=== PATIENT | female | born 1975 | race African-American/Black ===

== ENCOUNTER 2019-09-25 20:47 | Emergency (ER) | payer BC ==
[2019-09-25 21:33] LABS: Absolute Lymphocytes (CBC) 2.9 K/uL (0.7-4.9); Basophils % 0.7 % (0-1.3); Hematocrit 45.1 % (36.0-45.0); Lymphocytes % 38.1 % (15.3-44.8); MPV 8.5 fL (7.6-11.3)
[2019-09-25 21:44] LABS: Protime INR 1.15
[2019-09-25 22:22] LABS: ALT/SGPT 18 U/L (12-78); AST/SGOT 12 U/L (15-37); Albumin 3.3 g/dL (3.4-5.0); Alkaline Phosphatase 81 U/L (45-117); BUN Blood Urea Nitrogen 10 mg/dL (7-18); Bicarbonate 28 mmol/L (21-32); Bilirubin Direct < 0.1 mg/dL (0-0.2); Bilirubin Total 0.2 mg/dL (0.2-1.0); Glucose Level 82 mg/dL (74-106); Magnesium 1.9 mg/dL (1.8-2.4); NT PRO-BNP 34 pg/mL (<125); Potassium 3.3 mmol/L (3.5-5.1); Protein, Total 7.6 g/dL (6.4-8.2); Sodium Level 137 mmol/L (136-145); Troponin (Emerg Dept Use Only) < 0.02 ng/mL (0.0-0.045)
--- NOTE | 2019-09-26 01:17 | ER ---
Nurse's Notes [facility] Name: Patt Luis Age: 44 yrs Sex: Female : 1975 Arrival Date: 09/25/2019 Time: 20:47 Bed 16 Private MD: Diagnosis: Chest pain, unspecified Presentation: 09/25 20:50 Presenting complaint: Patient states: L sided Chest pain started at 5pm today, radiates ca1 to the back and neck that is describes pressure and is constant. Reports SOB. Denies N/V, dizziness, lightheadedness, cough. Denies hx of cardiac problems. Transition of care: patient was not received from another setting of care. Onset of symptoms was September 25, 2019 at 17:00. Risk Assessment: Do you want to hurt yourself or someone else? Patient reports no desire to harm self or others. Initial Sepsis Screen: Does the patient meet any 2 criteria? No. Patient's initial sepsis screen is negative. Does the patient have a suspected source of infection? No. Patient's initial sepsis screen is negative. Care prior to arrival: None. 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 LMP N/A - Hysterectomy ca1 Historical: - Allergies: 21:08 No Known Allergies; ca1 - Home Meds: 22:11 hydrocodone bitartrate oral oral as needed [Active]; estrogen patch [Active]; [place] jd3 Thyroid 30 mg Oral tab [Active]; clonazepam 0.5 mg Oral tab [Active]; lisinopril-hydrochlorothiazide 20-25 mg oral tab [Active]; sucralfate 1 gram Oral tab [Active]; potassium chloride 8 mEq Oral cpER [Active]; zolpidem 10 mg Oral tab [Active]; ferrous sulfate Oral [Active]; - PMHx: 21:08 Hypertension; Thyroid problem; Arthritis; Insomnia; Migraines; ca1 - PSHx: 21:08 ; Breast Reduction; Hysterectomy; Cholecystectomy; ca1 22:11 right rotator cuff; jd3 - Immunization history:: Adult Immunizations up to date, Flu vaccine is not up to date. - Social history:: Smoking status: Patient/guardian denies using tobacco. - Ebola Screening: : Patient negative for fever greater than or equal to 101.5 degrees Fahrenheit, and additional compatible Ebola Virus Disease symptoms Patient denies exposure to infectious person Patient denies travel to an Ebola-affected area in the 21 days before illness onset No symptoms or risks identified at this time. Screenin:56 Abuse screen: Denies threats or abuse. Nutritional screening: No deficits noted. jd3 Tuberculosis screening: No symptoms or risk factors identified. Fall Risk IV access (20 points). Ambulatory Aid- None/Bed Rest/Nurse Assist (0 pts). Gait- Normal/Bed Rest/Wheelchair (0 pts) Mental Status- Oriented to own ability (0 pts). Total Yadav Fall Scale indicates No Risk (0-24 pts). Assessment: 21:10 General: Appears in no apparent distress. uncomfortable, Behavior is calm, cooperative, jd3 appropriate for age. Pain: Complains of pain in chest Pain radiates to back Quality of pain is described as pressure, Pain began suddenly, pt reporting she does not want any pain medication at this time. Is intermittent. Neuro: Level of Consciousness is awake, alert, obeys commands, Oriented to person, place, time, situation. Cardiovascular: Reports chest pain, Capillary refill < 3 seconds Patient's skin is warm and dry. Rhythm is regular. Respiratory: Reports shortness of breath when chest hurts Airway is patent Respiratory effort is even, unlabored, Respiratory pattern is regular, symmetrical, Denies cough. GI: No signs and/or symptoms were reported involving the gastrointestinal system. Patient currently denies constipation, diarrhea, nausea, vomiting. : No signs and/or symptoms were reported regarding the genitourinary system. EENT: No signs and/or symptoms were reported regarding the EENT system. Derm: Skin is intact, Skin is dry, Skin is normal, Skin temperature is warm. Musculoskeletal: Circulation, motion, and sensation intact. Range of motion: intact in all extremities. 21:56 Reassessment: Patient appears in no apparent distress at this time. No changes from jd3 previously documented assessment. Patient and/or family updated on plan of care and expected duration. Pain level reassessed. Patient is alert, oriented x 3, equal unlabored respirations, skin warm/dry/pink. awaiting results. 23:13 Reassessment: Patient appears in no apparent distress at this time. Patient and/or jd3 family updated on plan of care and expected duration. Pain level reassessed. Patient is alert, oriented x 3, equal unlabored respirations, skin warm/dry/pink. awaiting repeat troponin and EKG at 2345. Patient states feeling better. 09/26 00:18 Reassessment: Patient appears in no apparent distress at this time. Patient and/or jd3 family updated on plan of care and expected duration. Pain level reassessed. Patient is alert, oriented x 3, equal unlabored respirations, skin warm/dry/pink. awaiting results Patient states feeling better. 01:43 Reassessment: Patient appears in no apparent distress at this time. Patient and/or jd3 family updated on plan of care and expected duration. Pain level reassessed. Patient is alert, oriented x 3, equal unlabored respirations, skin warm/dry/pink. reported understanding of discharge instructions, even and steady gait upon discharge. Patient states feeling better. Vital Signs: 09/25 21:08 BP 140 / 106; Pulse 96; Resp 19 S; Temp 98(O); Pulse Ox 100% on R/A; Weight 137.89 kg ca1 (R); Height 5 ft. 5 in. (165.10 cm) (R); Pain 10/10; 21:55 BP 128 / 83; Pulse 67; Resp 18 S; Pulse Ox 100% on R/A; jd3 23:14 BP 132 / 93; Pulse 84; Resp 16 S; Pulse Ox 100% on R/A; jd3 09/26 00:19 BP 146 / 90; Pulse 75; Resp 16 S; Pulse Ox 100% on R/A; jd3 01:44 Pulse 91; Resp 16 S; Pulse Ox 100% on R/A; jd3 09/25 21:08 Body Mass Index 50.59 (137.89 kg, 165.10 cm) ca1 ED Course: 09/25 20:47 Patient arrived in ED. ds1 21:00 Dez Dickerson MD is Attending Physician. tw4 21:07 Triage completed. ca1 21:08 Arm band placed on right wrist. ca1 21:10 Inserted saline lock: 20 gauge in right antecubital area, using aseptic technique. jd3 Blood collected. placed by Estela [facility]. Patient maintains SpO2 saturation greater than 95% on room air. 21:24 Horne, Armando, RN is Primary Nurse. jd3 21:50 XRAY Chest (1 view) In Process Unspecified. EDMS 21:56 Patient has correct armband on for positive identification. Placed in gown. Bed in low jd3 position. Call light in reach. Side rails up X 1. Adult w/ patient. permastone applicator on. Pulse ox on. NIBP on. 23:55 Troponin (emerg Dept Use Only): \T\ 2345 Sent. jd3 09/26 01:42 No provider procedures requiring assistance completed. IV discontinued, intact, jd3 bleeding controlled, No redness/swelling at site. Pressure dressing applied. Administered Medications: 09/25 23:10 Not Given (Patient Refused): TORadol 30 mg IVP once jd3 Outcome: 09/26 01:16 Discharge ordered by . tw4 01:43 Discharged to home ambulatory. jd3 01:43 Condition: stable 01:43 Discharge instructions given to patient, family, Instructed on discharge instructions, follow up and referral plans. medication usage, Demonstrated understanding of instructions, follow-up care, medications, Prescriptions given X 1. 01:45 Patient left the ED. jd3 Signatures: Dispatcher [employer] EDOH Alejandrina Rey ds1 Armando Horne RN RN jd3 Dez Dickerson MD MD tw4 Minna Luna RN RN ca1
--- NOTE | 2019-09-26 01:17 | EDPHYS ---
Physician Documentation [facility] Name: Patt Luis Age: 44 yrs Sex: Female : 1975 Arrival Date: 09/25/2019 Time: 20:47 Bed 16 Private MD: ED Physician Dez Dickerson HPI: 09/26 00:07 This 44 yrs old Black Female presents to ER via Wheelchair with complaints of Chest tw4 Pain. 00:07 The patient or guardian reports chest pain that is located primarily in the anterior tw4 chest wall, left. Onset: today. 00:09 The pain radiates to back. Associated signs and symptoms: The patient has no apparent tw4 associated signs or symptoms. The chest pain is described as dull. Duration: The patient or guardian reports a single episode. Modifying factors: The symptoms are alleviated by nothing. the symptoms are aggravated by nothing. Severity of pain: At its worst the pain was moderate in the emergency department the pain is unchanged. The patient has not experienced similar symptoms in the past. 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 LMP N/A - Hysterectomy ca1 Historical: - Allergies: 21:08 No Known Allergies; ca1 - Home Meds: 22:11 hydrocodone bitartrate oral oral as needed [Active]; estrogen patch [Active]; [place] jd3 Thyroid 30 mg Oral tab [Active]; clonazepam 0.5 mg Oral tab [Active]; lisinopril-hydrochlorothiazide 20-25 mg oral tab [Active]; sucralfate 1 gram Oral tab [Active]; potassium chloride 8 mEq Oral cpER [Active]; zolpidem 10 mg Oral tab [Active]; ferrous sulfate Oral [Active]; - PMHx: 21:08 Hypertension; Thyroid problem; Arthritis; Insomnia; Migraines; ca1 - PSHx: 21:08 ; Breast Reduction; Hysterectomy; Cholecystectomy; ca1 22:11 right rotator cuff; jd3 - Immunization history:: Adult Immunizations up to date, Flu vaccine is not up to date. - Social history:: Smoking status: Patient/guardian denies using tobacco. - Ebola Screening: : Patient negative for fever greater than or equal to 101.5 degrees Fahrenheit, and additional compatible Ebola Virus Disease symptoms Patient denies exposure to infectious person Patient denies travel to an Ebola-affected area in the days before illness onset No symptoms or risks identified at this time. ROS: 09/26 00:09 Constitutional: Negative for fever, chills, and weight loss, Eyes: Negative for injury, tw4 pain, redness, and discharge, Respiratory: Negative for shortness of breath, cough, wheezing, and pleuritic chest pain, Abdomen/GI: Negative for abdominal pain, nausea, vomiting, diarrhea, and constipation, Back: Negative for injury and pain, MS/Extremity: Negative for injury and deformity, Skin: Negative for injury, rash, and discoloration, Neuro: Negative for headache, weakness, numbness, tingling, and seizure. Cardiovascular: Positive for chest pain, Negative for edema, orthopnea, palpitations, paroxysmal nocturnal dyspnea. Exam: 00:09 Constitutional: This is a well developed, well nourished patient who is awake, alert, tw4 and in no acute distress. Head/Face: Normocephalic, atraumatic. Chest/axilla: Normal chest wall appearance and motion. Nontender with no deformity. No lesions are appreciated. Cardiovascular: Regular rate and rhythm with a normal S1 and S2. No gallops, murmurs, or rubs. Normal PMI, no JVD. No pulse deficits. Respiratory: Lungs have equal breath sounds bilaterally, clear to auscultation and percussion. No rales, rhonchi or wheezes noted. No increased work of breathing, no retractions or nasal flaring. Abdomen/GI: Soft, non-tender, with normal bowel sounds. No distension or tympany. No guarding or rebound. No evidence of tenderness throughout. Back: No spinal tenderness. No costovertebral tenderness. Full range of motion. MS/ Extremity: Pulses equal, no cyanosis. Neurovascular intact. Full, normal range of motion. Neuro: Awake and alert, GCS 15, oriented to person, place, time, and situation. Cranial nerves II-XII grossly intact. Motor strength 5/5 in all extremities. Sensory grossly intact. Cerebellar exam normal. Normal gait. Psych: Awake, alert, with orientation to person, place and time. Behavior, mood, and affect are within normal limits. Vital Signs: 09/25 21:08 BP 140 / 106; Pulse 96; Resp 19 S; Temp 98(O); Pulse Ox 100% on R/A; Weight 137.89 kg ca1 (R); Height 5 ft. 5 in. (165.10 cm) (R); Pain 10/10; 21:55 BP 128 / 83; Pulse 67; Resp 18 S; Pulse Ox 100% on R/A; jd3 23:14 BP 132 / 93; Pulse 84; Resp 16 S; Pulse Ox 100% on R/A; jd3 09/26 00:19 BP 146 / 90; Pulse 75; Resp 16 S; Pulse Ox 100% on R/A; jd3 01:44 Pulse 91; Resp 16 S; Pulse Ox 100% on R/A; jd3 09/25 21:08 Body Mass Index 50.59 (137.89 kg, 165.10 cm) ca1 MDM: 09/25 21:00 Patient medically screened. tw4 09/26 00:09 Differential diagnosis: acute myocardial infarction, acute pericarditis, anxiety, tw4 gastroesophageal reflux disease (GERD), pulmonary embolus, stable angina, thoracic aortic disection. HEART Score: History: Slightly Suspicious (0), ECG: Non specific repolarization disturbance / LBTB / PM (1), Age: < or = 45 years (0), Risk Factors: 1 or 2 risk factors (1), Troponin: < or = 1 x Normal Limit (0), Total Score = 2. The patient was given aspirin in the Emergency Department. Data reviewed: vital signs, nurses notes, lab test result(s), cardiac enzymes, CBC, electrolytes, EKG. 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 Test interpretation: by ED physician or midlevel provider: ECG, plain radiologic studies. Counseling: I had a detailed discussion with the patient and/or guardian regarding: the historical points, exam findings, and any diagnostic results supporting the discharge/admit diagnosis. Physician consultation:. Special discussion: Based on the patient's history, exam, and Dx evaluation, there is no indication for emergent intervention or inpatient Tx. It is understood by the patient/guardian that if the Sx's persist or worsen they need to return immediately for re-evaluation. I discussed with the patient/guardian in detail that at this point there is no indication for admission to the hospital. It is understood, however, that if the symptoms persist or worsen the patient needs to return immediately for re-evaluation. 01/16 21:02 Order name: Basic Metabolic Panel; Complete Time: 22:53 09/25 22:53 Interpretation: Normal except: K 3.3; GFR 77. 09/25 21:02 Order name: CBC with Diff; Complete Time: 22:53 09/25 22:53 Interpretation: Normal except: RBC 5.00; HCT 45.1. 09/25 21:02 Order name: LFT's; Complete Time: 22:53 09/25 22:53 Interpretation: Normal except: AST 12; ALB 3.3; GLOB 4.3; A/G 0.8. 09/25 21:02 Order name: Magnesium; Complete Time: 22:53 09/25 22:53 Interpretation: Within normal limits: MG 1.9. 09/25 21:02 Order name: NT PRO-BNP; Complete Time: 22:53 09/25 22:53 Interpretation: Within normal limits: NT PRO-BNP 34. 09/25 21:02 Order name: PT-INR; Complete Time: 22:53 09/25 22:53 Interpretation: Normal except: PT 13.5. 09/25 21:02 Order name: Troponin (emerg Dept Use Only); Complete Time: 22:53 09/25 22:53 Interpretation: Within normal limits: TROPED < 0.02. 09/25 21:02 Order name: XRAY Chest (1 view) 09/25 21:02 Order name: EKG; Complete Time: 21:04 09/25 21:02 Order name: Cardiac monitoring; Complete Time: 21:25 09/25 21:02 Order name: EKG - Nurse/Tech; Complete Time: 21:25 09/25 21:02 Order name: IV Saline Lock; Complete Time: 21:25 09/25 23:15 Order name: Troponin (emerg Dept Use Only): \T\ 2345 jd3 09/25 21:02 Order name: Labs collected and sent; Complete Time: 21:25 09/25 21:02 Order name: O2 Per Protocol; Complete Time: 21:25 09/25 21:02 Order name: O2 Sat Monitoring; Complete Time: 21:25 09/25 23:15 Order name: EKG - Nurse/Tech: \T\ 6025; Complete Time: 23:55 jd3 EC/16 21:04 Rate is 92 beats/min. Rhythm is regular. QRS [place] is Normal. MD interval is normal. QRS tw4 interval is normal. QT interval is normal. No Q waves. T waves are Inverted in lead aVF. No ST changes noted. Clinical impression: NSR w/ Non-specific ST/T Changes. Interpreted by me. Reviewed by me. Administered Medications: 23:10 Not Given (Patient Refused): TORadol 30 mg IVP once jd3 Disposition: 09/26/19 01:16 Discharged to Home. Impression: Chest pain, unspecified. - Condition is Stable. - Discharge Instructions: Nonspecific Chest Pain, Pain Without a Known Cause, Nonspecific Chest Pain, [id number], Aspirin and Your Heart. - Prescriptions for Ibuprofen 600 mg Oral Tablet - take 1 tablet by ORAL route every 6 hours As needed take with food; 30 tablet. - Medication Reconciliation Form, Thank You Letter, Antibiotic Education, Prescription Opioid Use form. - Follow up: Private Physician; When: Upon discharge from the Emergency Department; Reason: Recheck today's complaints, Continuance of care. - Problem is new. - Symptoms have improved. Signatures: Dispatcher [employer] Armando Villareal RN RN jd3 Dez Dickerson MD MD tw4 Minna Luna RN RN ca1 Corrections: (The following items were deleted from the chart) 09/26 00:10 00:07 The pain does not radiate. 01:45 01:16 09/26/2019 01:16 Discharged to Home. Impression: Chest pain, unspecified. jd3 Condition is Stable. Forms are Medication Reconciliation Form, Thank You Letter, Antibiotic Education, Prescription Opioid Use. Follow up: Private Physician; When: Upon discharge from the Emergency Department; Reason: Recheck today's complaints, Continuance of care. Problem is new. Symptoms have improved. tw4
[2019-09-26 02:03] VITALS: TEMP 98; O2SAT 100
[2019-09-26 02:08] VITALS: BP 146/90
--- NOTE | 2019-09-26 08:08 | EKG ---
Test Date: 2019-09-25 Test Time: 23:54:04 Chip Tuner: SUMEET MEASUREMENT RESULTS: Intervals: Rate: 81 AK: 112 QRSD: 80 QT: 364 QTc: 422 [place]: P: 53 AK: 112 QRS: 7 T: 2 INTERPRETIVE STATEMENTS: Normal sinus rhythm with sinus arrhythmia Moderate voltage criteria for LVH, may be normal variant Borderline ECG No previous ECG available for comparison Electronically Signed On 09-26-19 08:07:19 PERSONAL FINANCIAL REPRESENTATIVE by Matthew Lynne
--- NOTE | 2019-09-26 08:20 | RAD REPORT ---
EXAM DESCRIPTION: Boo Single View09/25/2019 9:50 pm CLINICAL HISTORY: Chest pain COMPARISON: none FINDINGS: The lungs appear clear of acute infiltrate. The heart is normal size IMPRESSION: No acute abnormalities displayed
--- NOTE | 2019-09-27 06:39 | EKG ---
Test Date: 2019-09-25 Test Time: 20:58:28 Foundry Worker Apprentice: AIDE MEASUREMENT RESULTS: Intervals: Rate: 92 [place]: 114 QRSD: 80 QT: 346 QTc: 427 [place]: P: 56 [place]: 114 QRS: 16 T: 3 INTERPRETIVE STATEMENTS: Normal sinus rhythm with sinus arrhythmia Minimal voltage criteria for LVH, may be normal variant Nonspecific T wave abnormality Abnormal ECG No previous ECG available for comparison Electronically Signed On 09-27-19 06:36:17 CAPITAL PROJECT ENGINEER by Matthew Lynne
== END 2019-09-26 01:45 | disposition home or self-care (01) ==
LOC: ER 20:47
DX: R07.9 Chest pain, unspecified (principal); I10 Essential (primary) hypertension; E07.9 Disorder of thyroid, unspecified
CPT/HCPCS: 36415; 71045; 80048; 80076; 83735; 83880; 84484; 85025; 85610; 93005; 99285